=== PATIENT | female | born 1960 | race Caucasian/White ===

== ENCOUNTER 2019-01-09 12:15 | Emergency (ER) | payer BC ==
--- NOTE | 2019-01-09 13:05 | ED ---
Adult Trauma - HPI Summary HPI Summary: 59-year-old female presents with head injury and back pain after a fall down stairs yesterday. States she's slipped when going up stairs and fell down a flight of stairs. She hit her head. She may have passed out. She admits to neck pain and back pain. No chest pain shortness breath. No abdominal pain. He admits to left shoulder and right forearm pain. Is able to ambulate. Denies any leg pain. States that she is achy all over. She is not on blood thinners. Has no medical conditions. she admits to dizziness. no change in vision. admits to difficulties concentrating. - History of Current Complaint Chief Complaint: EDFall Stated Complaint: FELL DOWN STAIRS PER PT Time Seen by Provider: 01/09/19 12:59 Pain Intensity: 3 - Allergy/Home Medications Allergies/Adverse Reactions: Allergies Allergy/AdvReac Type Severity Reaction Status Date / Time No Known Allergies Allergy Verified 01/09/19 13:04 PMH/Surg Hx/FS Hx/Imm Hx Endocrine/Hematology History: Denies: Hx Anticoagulant Therapy Respiratory History: Denies: Hx Asthma - Cancer History Cancer Type, Location and Year: Breast CA 2007 - Surgical History Surgery Procedure, Year, and Place: lumpectomy Infectious Disease History: No Infectious Disease History: Denies: History Other Infectious Disease, Traveled Outside the [place] in Last 30 Days - Family History Known Family History: Positive: Non-Contributory - Social History Alcohol Use: Daily Alcohol Amount: 2-3 wine/beer Substance Use Type: Reports: None Smoking Status (MU): Never Smoked Tobacco Review of Systems Negative: Fever Negative: Chest Pain Negative: Shortness Of Breath Positive: Myalgia - back pain and neck pain Positive: Headache All Other Systems Reviewed And Are Negative: Yes Physical Exam Triage Information Reviewed: Yes Vital Signs On Initial Exam: Initial Vitals Temp Pulse Resp BP Pulse Ox 98.2 F 112 18 174/100 97 01/09/19 12:16 01/09/19 12:16 01/09/19 12:16 01/09/19 12:16 01/09/19 12:16 Vital Signs Reviewed: Yes Appearance: Positive: Well-Appearing Skin: Positive: Warm, Dry Head/Face: Positive: Normal Head/Face Inspection Eyes: Positive: Normal, EOMI, JOJO, Conjunctiva Clear ENT: Positive: Normal ENT inspection, Pharynx normal, TMs normal Respiratory/Lung Sounds: Positive: Clear to Auscultation, Breath Sounds Present Cardiovascular: Positive: Normal, RRR Abdomen Description: Positive: Nontender, Soft Bowel Sounds: Positive: Present Musculoskeletal: Positive: Strength/ROM Intact - left shoulder and right forearm , back and neck, Other - tenderness midline neck and back, sensation grossly intact, good pulses Neurological: Positive: Normal Psychiatric: Positive: Normal Diagnostics - Vital Signs Vital Signs Temp Pulse Resp BP Pulse Ox 01/09/19 12:16 98.2 F 112 18 174/100 97 - Laboratory Lab Statement: Any lab studies that have been ordered have been reviewed, and results considered in the medical decision making process. - Radiology elbow Radiology Interpretation Completed By: Radiologist Summary of Radiographic Findings: IMPRESSION: OSTEOARTHRITIS. NO ACUTE OSSEOUS INJURY. IF SYMPTOMS PERSIST, RECOMMEND REPEAT IMAGING. shoulder Radiology Interpretation Completed By: Radiologist Summary of Radiographic Findings: IMPRESSION: OSTEOARTHRITIS. NO ACUTE OSSEOUS INJURY. IF SYMPTOMS PERSIST, RECOMMEND REPEAT IMAGING. - CT brain CT Interpretation Completed By: Radiologist Summary of CT Findings: IMPRESSION: NO ACUTE INTRACRANIAL PATHOLOGY neck CT Interpretation Completed By: Radiologist Summary of CT Findings: IMPRESSION: DEGENERATIVE DISC DISEASE AND OSTEOARTHRITIS. NO ACUTE OSSEOUS INJURY TO THE CERVICAL SPINE. lumbar CT Interpretation Completed By: Radiologist thoracic CT Interpretation Completed By: Radiologist Summary of CT Findings: IMPRESSION: DEGENERATIVE DISC DISEASE WITH MILD OSTEOARTHRITIS. NO ACUTE OSSEOUS INJURY TO THE THORACIC SPINE. Re-Evaluation - Re-Evaluation First Eval Re-Evaluation Time: 14:22 Comment: discussed CT results Adult Trauma Course/Dx - Course Course Of Treatment: 59-year-old female presents with head injury and back pain after a fall down stairs yesterday. States she's slipped when going up stairs and fell down a flight of stairs. She hit her head. She may have passed out. She admits to neck pain and back pain. No chest pain shortness breath. No abdominal pain. He admits to left shoulder and right forearm pain. Is able to ambulate. Denies any leg pain. States that she is achy all over. She is not on blood thinners. Has no medical conditions. On exam has normal neuro exam. Contusion noted to head. Tenderness over her neck and entire back. Neurovascular intact. Tenderness over left shoulder and right forearm. Has abrasions and contusions noted to her arms. Nontender chest and abdomen. CT shows no fractures. xray shows no fracture. got CT brain due to potential LOC and trauma. gave concussion precautions. told follow up with primary. patient understand and agrees with plan. - Diagnoses Differential Diagnosis/HQI/PQRI: Positive: Abrasion(s), Contusion(s), Fracture Provider Diagnoses: Fall, Head injury, Neck pain, Back pain, Left shoulder pain, Right elbow pain Discharge ED - Sign-Out/Discharge Documenting (check all that apply): Patient Departure Patient Received Moderate/Deep Sedation with Procedure: No - Discharge Plan Condition: Good Disposition: HOME Patient Education Materials: Head Injury (ED), Neck Pain (ED) Referrals: [facility] [place] [facility] [Outside] Additional Instructions: Place ice on area as needed Take Tylenol for headache every 6 hours Modify activities as tolerated Follow up with primary within 5 days Return to ED if develop any new or worsening symptoms - Billing Disposition and Condition Condition: GOOD Disposition: Home - Attestation Statements Provider Attestation: I was available for consult. This patient was seen by the [facility]. The patient was not presented to, seen by, or examined by me. Devin Castellanos MD
[2019-01-09 15:22] VITALS: BP 160/90
== END 2019-01-09 15:23 | disposition home or self-care (01) ==
LOC: ED 12:15
DX: S09.90XA Unspecified injury of head, initial encounter (principal); W10.9XXA Fall (on) (from) unspecified stairs and steps, initial encounter; Y92.9 Unspecified place or not applicable; M54.9 Dorsalgia, unspecified; M25.512 Pain in left shoulder; M25.521 Pain in right elbow; R42 Dizziness and giddiness; M19.012 Primary osteoarthritis, left shoulder; M19.021 Primary osteoarthritis, right elbow; M51.36 Other intervertebral disc degeneration, lumbar region; M51.34 Other intervertebral disc degeneration, thoracic region; M47.9 Spondylosis, unspecified; M50.323 Other cervical disc degeneration at C6-C7 level
CPT/HCPCS: 70450; 72125; 72128; 72131; 99282